=== PATIENT | male | born 1960 | race Two or more races ===

== ENCOUNTER 2021-05-27 06:45 | Outpatient (CLI) | payer OTHER | END 2021-05-27 23:59 | disposition home or self-care (01) | LOC: LAB 06:45 | PROVIDERS: ATTEND Ophthalmology | DX: Z01.812 Encounter for preprocedural laboratory examination (principal); Z20.822 Contact with and (suspected) exposure to COVID-19; H26.9 Unspecified cataract ==

== ENCOUNTER 2021-05-29 05:26 | Day surgery (SDC) | payer OTHER ==
[2021-05-29] MEDS ORDERED: TROPICAMIDE 1% OPHT DROP 3 ML BOTTLE ONE (05:49)
[2021-05-29] MEDS ORDERED: KETOROLAC 0.5% OPHT DROP 3 ML BOTTLE ONE (05:49)
[2021-05-29] MEDS ORDERED: CIPROFLOXACIN 0.3% OPHT DROP 2.5 ML BOTTLE ONE (05:50)
[2021-05-29] MEDS ORDERED: CYCLOPENTOLATE 1% OPHT DROP 2 ML BOTTLE ONE (05:50)
[2021-05-29] MEDS ORDERED: PHENYLEPHRINE 2.5% OPHT DROP 2 ML BOTTLE ONE (05:50)
[2021-05-29] MEDS ORDERED: LIDOCAINE-MPF 2% 5 ML VIAL ONE (06:14)
[2021-05-29] MEDS ORDERED: TIMOLOL MALEATE 0.5% OPHT DROP 5 ML BOTTLE ONE (06:14)
[2021-05-29] MEDS ORDERED: BALANCED SALT IRRIG SOLN COMB2 15 ML IRRIG.SOLN ONE (06:14)
[2021-05-29] MEDS ORDERED: ACETYLCHOLINE CHLORIDE 1% OPHT 1 EA KIT ONE (06:14)
[2021-05-29] MEDS ORDERED: NEO/POLYMYX B/DEXAME OPHT OINT 3.5 GM TUBE ONE (06:14)
[2021-05-29] MEDS ORDERED: MOXIFLOXACIN HCL 3 ML OPHT DROPS ONE (06:14)
[2021-05-29] MEDS ORDERED: TETRACAINE HCL 0.5% OPHT DROP 2 ML BOTTLE ONE (06:14)
[2021-05-29] MEDS ORDERED: BUPIVACAINE PF 0.5% 30 ML VIAL ONE (06:15)
[2021-05-29] MEDS ORDERED: HYALURONIDASE,OVINE 200 UNITS/ML VIAL ONE (06:15)
[2021-05-29] MEDS ORDERED: HYALURONATE SODIUM 12.8 MG/0.8 ML DISP.SYRIN ONE (06:15)
[2021-05-29] MEDS ORDERED: FENTANYL CITRATE 100 MCG/2 ML AMPUL ONE (06:39)
[2021-05-29] MEDS ORDERED: BALANCED SALT IRRIG SOLN COMB1 500 ML, EPINEPHRINE-PF 1:1000 0.5 MG IO ONE (07:00)
[2021-05-29] MEDS ORDERED: TRYPAN BLUE 0.5 ML DISP.SYRIN ONE (07:07)
[2021-05-29] MEDS ORDERED: BALANCED SALT IRRIG SOLN COMB1 500 ML ONE (08:13)
== END 2021-05-29 09:50 | disposition home or self-care (01) ==
LOC: DS 05:26
PROVIDERS: ATTEND Ophthalmology
DX: E11.36 Type 2 diabetes mellitus with diabetic cataract (principal); H25.89 Other age-related cataract; I10 Essential (primary) hypertension; I70.0 Atherosclerosis of aorta; Z79.899 Other long term (current) drug therapy; Z98.890 Other specified postprocedural states
CPT/HCPCS: 66984; 71045; J0171; J3010; J3471; J3490 ×2; J7321; V2632; A4663; J7030; Q9968

== ENCOUNTER 2021-10-21 06:11 | Outpatient (CLI) | payer OTHER | END 2021-10-21 23:59 | disposition home or self-care (01) | LOC: LAB 06:11 | PROVIDERS: ATTEND Ophthalmology | DX: Z01.812 Encounter for preprocedural laboratory examination (principal); Z20.822 Contact with and (suspected) exposure to COVID-19 ==

== ENCOUNTER 2021-10-23 06:12 | Day surgery (SDC) | payer OTHER ==
[2021-10-23] MEDS ORDERED: PHENYLEPHRINE 2.5% OPHT DROP 2 ML BOTTLE ONE (06:42)
[2021-10-23] MEDS ORDERED: KETOROLAC 0.5% OPHT DROP 3 ML BOTTLE ONE (06:42)
[2021-10-23] MEDS ORDERED: CYCLOPENTOLATE 1% OPHT DROP 2 ML BOTTLE ONE (06:42)
[2021-10-23] MEDS ORDERED: CIPROFLOXACIN 0.3% OPHT DROP 2.5 ML BOTTLE ONE (06:42)
[2021-10-23] MEDS ORDERED: TROPICAMIDE 1% OPHT DROP 3 ML BOTTLE ONE ×2 (06:42→06:44)
[2021-10-23] MEDS ORDERED: BALANCED SALT IRRIG SOLN COMB1 500 ML, EPINEPHRINE-PF 1:1000 0.5 MG IO ONE (07:00)
[2021-10-23] MEDS ORDERED: MOXIFLOXACIN HCL 3 ML OPHT DROPS ONE (07:31)
[2021-10-23] MEDS ORDERED: ACETYLCHOLINE CHLORIDE 1% OPHT 1 EA KIT ONE (07:31)
[2021-10-23] MEDS ORDERED: TIMOLOL MALEATE 0.5% OPHT DROP 5 ML BOTTLE ONE (07:31)
[2021-10-23] MEDS ORDERED: LIDOCAINE-MPF 2% 5 ML VIAL ONE (07:31)
[2021-10-23] MEDS ORDERED: BALANCED SALT IRRIG SOLN COMB2 15 ML IRRIG.SOLN ONE (07:31)
[2021-10-23] MEDS ORDERED: NEO/POLYMYX B/DEXAME OPHT OINT 3.5 GM TUBE ONE (07:31)
[2021-10-23] MEDS ORDERED: BUPIVACAINE PF 0.5% 30 ML VIAL ONE (07:32)
[2021-10-23] MEDS ORDERED: BALANCED SALT IRRIG SOLN COMB1 500 ML ONE (07:32)
[2021-10-23] MEDS ORDERED: HYALURONIDASE,OVINE 200 UNITS/ML VIAL ONE (07:32)
[2021-10-23] MEDS ORDERED: HYALURONATE SODIUM 12.8 MG/0.8 ML DISP.SYRIN ONE (07:32)
[2021-10-23] MEDS ORDERED: FENTANYL CITRATE 100 MCG/2 ML AMPUL ONE (07:51)
== END 2021-10-23 10:10 | disposition home or self-care (01) ==
LOC: DS 06:12
PROVIDERS: ATTEND Ophthalmology
DX: E11.36 Type 2 diabetes mellitus with diabetic cataract (principal); H25.89 Other age-related cataract; I10 Essential (primary) hypertension; E78.5 Hyperlipidemia, unspecified; Z79.899 Other long term (current) drug therapy; Z98.890 Other specified postprocedural states
CPT/HCPCS: 36415; 66984; 84132; J0171; J3010; J3471; J3490 ×2; J7321; V2632; A4663; J7030